=== PATIENT | male | born 1995 | race Two or more races ===

== ENCOUNTER → 2025-04-03 10:08 | Outpatient (REF) | payer BC, SELFPAY ==
[2025-04-05 18:54] LABS: Hepatitis B Surface Antigen Negative (Negative)
[2025-04-05 19:12] LABS: Hepatitis C Antibody Negative (Negative)
== END ==
LOC: REG 10:08
PROVIDERS: ATTENDING PHYSICIAN Nurse Practitioner Obstetrics & Gynecology
DX: Z11.3 Encounter for screening for infections with a predominantly sexual mode of transmission (principal)
CPT/HCPCS: 36415; 86780; 86803; 87340; 87389; 87491; 87591